=== PATIENT | female | born 2000 | race Caucasian/White ===

== ENCOUNTER 2024-10-24 17:42 | Emergency (ER) | payer OTHER ==
[~2024-10-24] VITALS: Ht 160 cm; Wt 54.4 kg
[2024-10-24 17:50] VITALS: TEMP 98.4
[2024-10-24] MEDS ORDERED: IBUPROFEN 600 MG TABLET ONE (18:04)
[2024-10-24] MEDS ORDERED: ACETAMINOPHEN ES 500 MG TABLET ONE (18:04)
[2024-10-24] MEDS: IBUPROFEN 600 MG TABLET PO ONE (18:10)
[2024-10-24] MEDS: ACETAMINOPHEN ES 500 MG TABLET PO ONE (18:10)
[2024-10-24 19:02] VITALS: BP 151/76; O2SAT 98
== END 2024-10-24 19:02 | disposition home or self-care (01) ==
LOC: EDUNIT# 17:42 → ER 18:12
DX: S52.122A Displaced fracture of head of left radius, initial encounter for closed fracture (principal); Z60.2 Problems related to living alone; W01.0XXA Fall on same level from slipping, tripping and stumbling without subsequent striking against object, initial encounter; Y93.01 Activity, walking, marching and hiking; Y92.89 Other specified places as the place of occurrence of the external cause; Y99.8 Other external cause status
CPT/HCPCS: 73080-TC

== ENCOUNTER → 2024-10-24 | Emergency (ER) | payer OTHER | END | disposition left against medical advice (07) | LOC: EDUNIT# 17:36 → ER 17:40 | DX: M79.603 Pain in arm, unspecified (principal); Z53.21 Procedure and treatment not carried out due to patient leaving prior to being seen by health care provider ==

== ENCOUNTER → 2024-10-24 | Emergency (ER) | payer SELFPAY | END | disposition left against medical advice (07) | LOC: ER 17:36 | DX: Z53.21 Procedure and treatment not carried out due to patient leaving prior to being seen by health care provider (principal) ==